=== PATIENT | female | born 1955 | race Two or more races ===

== ENCOUNTER 2023-10-24 13:28 | Emergency (ER) | payer OTHER ==
[~2023-10-24] VITALS: Ht 149.9 cm; Wt 68.0 kg
[2023-10-24 17:20] LABS: HEMATOCRIT 40.3 % (36.0-45.00); HEMOGLOBIN 13.5 g/dL (12.0-15.00); MEAN CELL VOLUME 88.7 fL (80.00-100.00); MEAN CORPUSCULAR HEMOGLOBIN 29.8 pg (27.00-32.0); MEAN CORPUSCULAR HGB CONC 33.5 g/dl (32.0-36.0); PLATELET COUNT 385 K/uL (150-450); RED BLOOD COUNT 4.54 M/uL (4.00-6.00); RED CELL DISTRIBUTION WIDTH 13.5 % (11.5-14.5)
== END 2023-10-24 19:09 | disposition home or self-care (01) ==
LOC: ER 13:29
PROVIDERS: General Practice
DX: L03.211 Cellulitis of face (principal); L02.01 Cutaneous abscess of face

== ENCOUNTER 2023-11-16 12:30 | Emergency (ER) | payer OTHER ==
[~2023-11-16] VITALS: Ht 149.9 cm; Wt 68.0 kg
[2023-11-16] MEDS ORDERED: AMOX-CLAV 875-1 EACH PO (16:57)
[2023-11-16 19:02] LABS: INR 0.98; PARTIAL THROMBOPLASTIN TIME 26.5 SECONDS (22.0-34.0); PROTHROMBIN TIME 10.3 SECONDS (9.0-11.5)
[2023-11-16 19:13] LABS: CALCIUM 9.7 mg/dL (8.5-10.1); CREATININE SERUM 0.7 mg/dL (0.55-1.02); GFR 83.72; POTASSIUM 4.41 mEq/L (3.5-5.1)
[2023-11-16 21:10] LABS: HEMATOCRIT 39.3 % (36.0-45.00); MEAN CELL VOLUME 89.8 fL (80.00-100.00); MEAN CORPUSCULAR HEMOGLOBIN 29.7 pg (27.00-32.0); MEAN CORPUSCULAR HGB CONC 33.1 g/dl (32.0-36.0); PLATELET COUNT 352 K/uL (150-450); RED BLOOD COUNT 4.38 M/uL (4.00-6.00); URINE APPEARANCE Clear; URINE BILIRRUBIN Negative (NEGATIVE); URINE BLOOD Negative; URINE COLOR Yellow; URINE GLUCOSE Negative (NEGATIVE); URINE LEUKOCYTE Small; URINE NITRATE Negative; URINE PROTEIN Negative (NEGATIVE)
[2023-11-16 21:11] LABS: URINE BACTERIA 22.6 uL (0.0-1933); URINE EPITHELIAL CELLS 4.1 uL (0.0-38.8); URINE RBC 13.9 uL (0.0-20.8); URINE WBC 46.1 uL (0.0-23.2)
== END 2023-11-16 21:50 | disposition home or self-care (01) ==
LOC: ER 12:30
PROVIDERS: General Practice; Nurse Practitioner Family
DX: L02.91 Cutaneous abscess, unspecified (principal)